=== PATIENT | male | born 1960 | race Caucasian/White ===

== ENCOUNTER 2016-12-05 15:21 | Inpatient (IN) | payer OTHER ==
[2016-12-05 17:30] VITALS: BMI 27.3
--- NOTE | 2016-12-05 20:43 | HP ---
COWS - Scale Resting Pulse: 0= [place] 80 or Below Sweatin= Chills/Flushing Restless Observation: 3= Extraneous Movement Pupil Size: 0= Normal to Room Light Bone or Joint Aches: 2= Severe Diffuse Aches Runny Nose/ Eye Tearin= Runny Nose/Eyes GI Upset > 30mins: 2= Nausea/Diarrhea Tremor Observation: 2= Slight Tremor Visible Yawning Observation: 1= 1-2x During Session Anxiety or Irritability: 2=Irritable/Anxious Goose Flesh Skin: 0=Smooth Skin COWS Score: 15 Admission ROS S - [facility] Chief Complaint: withdrawal sx Allergies/Adverse Reactions: Allergies Allergy/AdvReac Type Severity Reaction Status Date / Time Penicillins Allergy Severe Hives Verified 12/05/16 18:38 History of Present Illness: 56 years old male with long history of opioid nicotine dependence has hypertension, stroke 2002 ambulate with cane, has depression is admitted to detox Exam Limitations: No Limitations - Ebola screening Have you traveled outside of the country in the last 21 days: No Have you had contact with anyone from an Ebola affected area: No Have you been sick,other than usual withdrawal symptoms: No Do you have a fever: No - Review of Systems Constitutional: Chills, Changes in sleep, Weight Stable EENT: reports: Blurred Vision (eye glasses) Respiratory: reports: SOB with Exertion, Productive cough Cardiac: reports: No Symptoms Reported GI: reports: Constipated, Nausea, Poor Fluid Intake, Abdominal cramping : reports: No Symptoms Reported Musculoskeletal: reports: Back Pain, Joint Pain, Muscle Pain, Muscle Weakness ( left arm and left leg), Neck Pain Integumentary: reports: Change in Color (left arm) Neuro: reports: Tremors Endocrine: reports: No Symptoms Reported Hematology: reports: No Symptoms Reported Psychiatric: reports: Judgement Intact, Orientated x3, Depressed Other Systems: Reviewed and Negative Patient History - Patient Medical History Hx Anemia: No Hx Asthma: No Hx Chronic Obstructive Pulmonary Disease (COPD): No Hx Cancer: No Hx Cardiac Disorders: Yes Hx Congestive Heart Failure: No Hx Hypertension: Yes Hx Hypercholesterolemia: No Hx Pacemaker: No HX Cerebrovascular Accident: Yes (2002/left side weakness) Hx Seizures: No Hx Dementia: No Hx Diabetes: No Hx Gastrointestinal Disorders: No Hx Liver Disease: No Hx Genitourinary Disorders: No Hx Sexually Transmitted Disorders: No Hx Renal Disease (ESRD): No Hx Thyroid Disease: No Hx Human Immunodeficiency Virus (HIV): Yes Hx Hepatitis C: Yes Hx Depression: Yes Hx Suicide Attempt: No Hx Bipolar Disorder: No Hx Schizophrenia: No - Patient Surgical History Past Surgical History: Yes Hx Neurologic Surgery: No Hx Cataract Extraction: No Hx Cardiac Surgery: No Hx Lung Surgery: No Hx Breast Surgery: No Hx Breast Biopsy: No Hx Abdominal Surgery: No Hx Appendectomy: No Hx Cholecystectomy: No Hx Genitourinary Surgery: No Hx Orthopedic Surgery: No Other Surgical History: right leg stent 2010 Anesthesia Reaction: No - PPD History Previous Implant?: Yes Documented Results: Negative w/o proof Implanted On Prior [facility] Admission?: No PPD to be Administered?: Yes - Smoking Cessation Smoking history: Current every day smoker Have you smoked in the past 12 months: Yes Aproximately how many cigarettes per day: 10 Cigars Per Day: 0 Hx Chewing Tobacco Use: No Initiated information on smoking cessation: Yes 'Breaking Loose' booklet given: 12/05/16 - Substance & Tx. History Hx Alcohol Use: No Hx Substance Use: Yes Substance Use Type: Heroin Hx Substance Use Treatment: Yes (2012) - Substances Abused Heroin Route: Injection Frequency: Daily Amount used: 5 BAGS Age of first use: 20 Date of Last Use: 12/05/16 Family Disease History - Family Disease History Family Disease History: Diabetes: Sister, Heart Disease: Father (), Mother (), Brother (), Other: Father, Mother, Brother Admission Physical Exam BHS - Vital Signs Vital Signs: Vital Signs - 24 hr 12/05/16 17:28 Temperature 96.7 F L Pulse Rate 79 Respiratory 20 Rate Blood Pressure 126/81 - Physical General Appearance: Yes: Nourished, Appropriately Dressed, Mild Distress, Tremorous, Irritable, Sweating, Anxious HEENTM: Yes: Hearing grossly Normal, Normal ENT Inspection, Normocephalic, Normal Voice Respiratory: Yes: Chest Non-Tender, Lungs Clear, Normal Breath Sounds, No Respiratory Distress, No Accessory Muscle Use Neck: Yes: Supple, Trachea in good position Breast: Yes: Breasts Symetrical Cardiology: Yes: Regular Rhythm, Regular Rate, S1, S2 Abdominal: Yes: Non Tender, Soft, Decreased BS Genitourinary: Yes: Within Normal Limits Back: Yes: Normal Inspection Musculoskeletal: Yes: Gait Steady (cane), Back pain, Joint swelling (left hand) , Muscle Pain, Muscle weakness (left arm and leg) Extremities: Yes: Non-Tender, Tremors Neurological: Yes: Fully Oriented, Alert, Normal Response, Depressed Affect Integumentary: Yes: Warm, Track Obrien Lymphatic: Yes: Within Normal Limits - Diagnostic (1) Opioid dependence with withdrawal Current Visit: Yes Status: Acute (2) HIV (human immunodeficiency virus infection) Current Visit: Yes Status: Chronic (3) Hypertension Current Visit: Yes Status: Chronic Qualifiers: Hypertension type: essential hypertension Qualified Code(s): I10 - Essential (primary) hypertension (4) Depression (emotion) Current Visit: Yes Status: Suspected Qualifiers: Depression Type: dysthymia Qualified Code(s): F34.1 - Dysthymic disorder (5) Use of cane as ambulatory aid Current Visit: Yes Status: Chronic (6) Constipation Current Visit: Yes Status: Chronic Qualifiers: Constipation type: slow transit constipation Qualified Code(s): K59.01 - Slow transit constipation Cleared for Admission [facility] - Detox or Rehab [facility] Level of Care: Medically Managed Detox Regimen/Protocol: Methadone [facility] Breath Alcohol Content Breath Alcohol Content: 0 Urine Drug Screen - Results Drug Screen Negative: No Urine Drug Screen Results: OPI-Opiates, OXY-Oxycodone
[2016-12-05] MEDS ORDERED: NICOTINE POLACRILEX 2 MG GUM BC PRN (20:48)
[2016-12-05] MEDS ORDERED: METHADONE HCL 10 MG TABLET (FOR DETOX USE ONLY) PO ONE ×2 (20:48→23:00)
[2016-12-05] MEDS ORDERED: MAGNESIUM CITRATE 300 ML BOTTLE PO PRN (20:48)
[2016-12-05] MEDS ORDERED: MAG HYDROX/AL HYDROX/SIMETH 30 ML UNIT-DOSE CUP PO PRN (20:48)
[2016-12-05] MEDS ORDERED: P-EPHED 60MG/TRIPROLIDI 2.5MG TABLET PO PRN (20:48)
[2016-12-05] MEDS ORDERED: diphenhydrAMINE HCL 50 MG CAPSULE PO PRN (20:48)
[2016-12-05] MEDS ORDERED: LOPERAMIDE HCL 2 MG CAPSULE PO PRN (20:48)
[2016-12-05] MEDS ORDERED: ACETAMINOPHEN 325 MG TABLET (FP) PO PRN (20:48)
[2016-12-05] MEDS ORDERED: MAGNESIUM HYDROX 2400MG/30ML ORAL SUSPENSION 30 ML CUP PO PRN (20:48)
[2016-12-05] MEDS ORDERED: MENTHOL/PHENOL 1 EACH UD MM PRN (20:48)
[2016-12-05] MEDS ORDERED: guaiFENesin/D-METHORPHAN HB 10 ML UNIT-DOSE CUPS PO PRN (20:48)
[2016-12-05] MEDS: diazePAM 5 MG TABLET PO PRN (21:52)
[2016-12-05] MEDS: PSYLLIUM 5.85 GM PACKET PO SCH (23:14)
[2016-12-05] MEDS: THIAMINE HCL 100 MG TABLET (FP) PO SCH (23:15)
[2016-12-05 23:34] LABS: URINE APPEARANCE SLCLOUDY; URINE BILIRUBIN NEGATIVE (NEGATIVE); URINE BLOOD 1+ (NEGATIVE); URINE COLOR YELLOW; URINE GLUCOSE (UA) NEGATIVE (NEGATIVE); URINE KETONE NEGATIVE (NEGATIVE); URINE LEUK ESTERASE NEGATIVE (NEGATIVE); URINE NITRITE NEGATIVE (NEGATIVE); URINE PROTEIN NEGATIVE (NEGATIVE); URINE UROBILINOGEN NEGATIVE mg/dL (0.2-1.0)
[2016-12-05 23:36] LABS: URINE HYALINE CAST 1 /lpf; URINE MUCUS RARE; URINE RBC 3 /hpf (0-3); URINE WBC 1 /hpf (3-5)
[2016-12-06 09:55] LABS: MCH 32.7 pg (25.7-33.7); MCHC 34.3 g/dl (32.0-35.9); MEAN CELL VOLUME 95.3 fl (80-96); MEAN PLT VOLUME 8.9 fl (7.5-11.1); PLATELET COUNT 256 K/MM3 (134-434); RDW 12.8 % (11.9-15.9); WHITE BLOOD COUNT 9.4 K/mm3 (4.0-10.0)
[2016-12-06 09:58] LABS: ALBUMIN 3.7 g/dl (3.4-5.0); ANION GAP 7 (8-16); CALCIUM 9.5 mg/dL (8.5-10.1); CO2 29 mmol/L (21-32); CREATININE 0.8 mg/dL (0.7-1.3); GLUCOSE,RANDOM 95 mg/dL (74-106); SGOT/AST 17 U/L (15-37); SGPT/ALT 27 U/L (12-78)
[2016-12-06 09:59] LABS: ALK PHOS 89 U/L (45-117); BILIRUBIN,TOTAL 0.5 mg/dL (0.2-1.0); TOT PROT 7.4 g/dl (6.4-8.2)
[2016-12-06] MEDS ORDERED: METHADONE HCL 10 MG TABLET (FOR DETOX USE ONLY) PO ONE (10:00)
--- NOTE | 2016-12-06 10:36 | PN ---
BHS COWS - Scale Resting Pulse: 0= [place] 80 or Below Sweatin= Chills/Flushing Restless Observation: 3= Extraneous Movement Pupil Size: 1= Pupils >than Normal Bone or Joint Aches: 2= Severe Diffuse Aches Runny Nose/ Eye Tearin= Runny Nose/Eyes GI Upset > 30mins: 3= Vomiting/Diarrhea Tremor Observation of Outstretched Hands: 2= Slight Tremor Visible Yawning Observation: 1= 1-2x During Session Anxiety or Irritability: 2=Irritable/Anxious Goose Flesh Skin: 0=Smooth Skin COWS Score: 17 S Progress Note (SOAP) Subjective: alert,irritable,anxious,pain in the body,,interrupted sleep Objective: 12/06/16 10:39 Vital Signs Temperature 97.3 F L 12/06/16 09:53 Pulse Rate 75 12/06/16 09:53 Respiratory Rate 16 12/06/16 09:53 Blood Pressure 129/88 12/06/16 09:53 O2 Sat by Pulse Oximetry (%) 12/06/16 10:40 ekg nsr,normal ecg Laboratory Last Values WBC 9.4 K/mm3 (4.0-10.0) 12/06/16 07:00 RBC 4.87 M/mm3 (4.00-5.60) 12/06/16 07:00 Hgb 15.9 GM/dL (11.7-16.9) 12/06/16 07:00 Hct 46.5 % (35.4-49) 12/06/16 07:00 MCV 95.3 fl (80-96) 12/06/16 07:00 MCH 32.7 pg (25.7-33.7) 12/06/16 07:00 MCHC 34.3 g/dl (32.0-35.9) 12/06/16 07:00 RDW 12.8 % (11.9-15.9) 12/06/16 07:00 Plt Count 256 K/MM3 (134-434) 12/06/16 07:00 MPV 8.9 fl (7.5-11.1) 12/06/16 07:00 Sodium 139 mmol/L (136-145) 12/06/16 07:00 Potassium 3.6 mmol/L (3.5-5.1) 12/06/16 07:00 Chloride 103 mmol/L (98-107) 12/06/16 07:00 Carbon Dioxide 29 mmol/L (21-32) 12/06/16 07:00 Anion Gap 7 (8-16) L 12/06/16 07:00 BUN 17 mg/dL (7-18) 12/06/16 07:00 Creatinine 0.8 mg/dL (0.7-1.3) 12/06/16 07:00 Creat Clearance w eGFR > 60 (>60) 12/06/16 07:00 Random Glucose 95 mg/dL (74-106) 12/06/16 07:00 Calcium 9.5 mg/dL (8.5-10.1) 12/06/16 07:00 Total Bilirubin 0.5 mg/dL (0.2-1.0) 12/06/16 07:00 AST 17 U/L (15-37) 12/06/16 07:00 ALT 27 U/L (12-78) 12/06/16 07:00 Alkaline Phosphatase 89 U/L (45-117) 12/06/16 07:00 Total Protein 7.4 g/dl (6.4-8.2) 12/06/16 07:00 Albumin 3.7 g/dl (3.4-5.0) 12/06/16 07:00 Urine Color Yellow 12/05/16 23:10 Urine Appearance Slcloudy 12/05/16 23:10 Urine pH 5.0 (5.0-8.0) 12/05/16 23:10 Ur Specific [place] 1.025 (1.005-1.025) 12/05/16 23:10 Urine Protein Negative (NEGATIVE) 12/05/16 23:10 Urine Glucose (UA) Negative (NEGATIVE) 12/05/16 23:10 Urine Ketones Negative (NEGATIVE) 12/05/16 23:10 Urine Blood 1+ (NEGATIVE) H 12/05/16 23:10 Urine Nitrite Negative (NEGATIVE) 12/05/16 23:10 Urine Bilirubin Negative (NEGATIVE) 12/05/16 23:10 Urine Urobilinogen Negative mg/dL (0.2-1.0) 12/05/16 23:10 Urine RBC 3 /hpf (0-3) 12/05/16 23:10 Urine WBC 1 /hpf (3-5) 12/05/16 23:10 Hyaline Casts 1 /lpf 12/05/16 23:10 Urine Mucus Rare 12/05/16 23:10 Assessment: 12/06/16 10:40 withdrawal symptom Plan: continue detox
[2016-12-06] MEDS: PATIENT'S OWN MEDICATION (NON-FORMULARY) (Amlodipine Besylate/Benazepril [Lotrel 5-40 Mg C PO SCH (10:37)
[2016-12-06] MEDS: PATIENT'S OWN MEDICATION (NON-FORMULARY) (Darunavir/Cobicistat [Prezcobix 800 Mg-150 Mg Ta PO SCH (10:37)
[2016-12-06] MEDS: PRENATAL VITAMINS W/ FOLIC ACID TABLET (FP) PO SCH (10:40)
[2016-12-06] MEDS: NICOTINE 14 MG/24 HOURS TOPICAL PATCH TD SCH (10:40)
[2016-12-06] MEDS: ASPIRIN 81 MG CHEWABLE TABLETS PO SCH (10:41)
[2016-12-06] MEDS: CHLORTHALIDONE 25 MG TABLET PO SCH (11:30)
[2016-12-06] MEDS ORDERED: PNEUMOC 13-VAL CONJ-DIP CRM/PF 0.5 ML DISP.SYRIN IM ONE (12:00)
[2016-12-06] MEDS ORDERED: FLU VACCINE QUAD 60 MCG/0.5 ML (MDV 17-18) IM ONE (12:00)
--- NOTE | 2016-12-06 16:07 | CONSULT ---
[facility] Psychiatric Consult - Data Date of interview: 12/06/16 Admission source: [facility] Identifying data: This is 56 years old male amb ulating with cane intoxicatyed with: Opioids and Nicotine Substance Abuse History: - Smoking Cessation. Smoking history: Current every day smoker. Have you smoked in the past 12 months: Yes. Aproximately how many cigarettes per day: 10. Cigars Per Day: 0. Hx Chewing Tobacco Use: No. Initiated information on smoking cessation: Yes. 'Breaking Loose' booklet given : 12/05/16. - Substance & Tx. History. Hx Alcohol Use: No. Hx Substance Use: Yes. Substance Use Type: Heroin. Hx Substance Use Treatment: Yes (2012). - Substances Abused. Heroin. Route: Injection. Frequency: Daily. Amount used: 5 BAGS. Age of first use: 20. Date of Last Use: 12/05/16 Medical History: HIV+, HTN, History of Stroke 1992 Psychiatric History: Patienmt reprots history of depression, reports takinf umknown psychiatric medications, did not take them for the last few days and not remembering name of them. Patiebt denies suicidal history, [id number] history of psychiatric admikssions. Physical/Sexual Abuse/Trauma History: Denies Additional Comment: Observation. Detox Unit Care Protocol Mental Status Exam - Mental Status Exam Alert and Oriented to: Person Cognitive Function: Fair Patient Appearance: Unkempt Mood: Sad Affect: Flat Patient Behavior: Guarded Speech Pattern: Delayed Voice Loudness: Mildly Soft/Quiet Thought Process: Circumstantial Thought Disorder: Being Controlled Hallucinations: Denies Suicidal Ideation: Denies Homicidal Ideation: Denies Insight/Judgement: Fair Sleep: Difficulty falling asleep Appetite: Fair Muscle strength/Tone: Normal Gait/Station: Normal Additional Comments: Observation. Detox Unit Care Protocol Psychiatric Findings - Problem List ([place] 1, 2,3) (1) Opioid dependence with withdrawal Current Visit: Yes Status: Acute (2) Nicotine dependence Current Visit: Yes Status: Acute (3) Drug-induced mood disorder Current Visit: Yes Status: Acute - Initial Treatment Plan Initial Treatment Plan: Observation. Detox Unit Care Protocol
[2016-12-06] MEDS: THIAMINE HCL 100 MG TABLET (FP) PO SCH (22:25)
[2016-12-06] MEDS: diazePAM 5 MG TABLET PO PRN (22:25)
[2016-12-06] MEDS: PSYLLIUM 5.85 GM PACKET PO SCH (22:27)
--- NOTE | 2016-12-06 22:36 | EKG ---
Test Reason : Blood Pressure : / mmHG Vent. Rate : 076 BPM Atrial Rate : 076 BPM P-R Int : 192 ms QRS Dur : 110 ms QT Int : 398 ms P-R-T Axes : 053 -26 050 degrees QTc Int : 447 ms SINUS RHYTHM FIRST DEGREE AVBLOCK ATRIAL ABNORMALITY LEFT ANTERIOR FASCICULAR BLOCK INCOMPLETE RBBB NO PREVIOUS ECGS AVAILABLE REPEAT EKG IF CLINICALLY INDICATED Confirmed by BARRON ZAVALETA MD ([id number]) on 12/06/2016 10:35:54 PM Referred By: Confirmed By:BARRON ZAVALETA MD
[2016-12-07] MEDS ORDERED: METHADONE HCL 5 MG TABLET (FOR DETOX USE ONLY) PO ONE (10:00)
[2016-12-07] MEDS: ASPIRIN 81 MG CHEWABLE TABLETS PO SCH (10:35)
[2016-12-07] MEDS: PRENATAL VITAMINS W/ FOLIC ACID TABLET (FP) PO SCH (10:35)
[2016-12-07] MEDS: diazePAM 5 MG TABLET PO PRN (10:35)
[2016-12-07] MEDS: CHLORTHALIDONE 25 MG TABLET PO SCH (10:36)
[2016-12-07] MEDS: PATIENT'S OWN MEDICATION (NON-FORMULARY) (Darunavir/Cobicistat [Prezcobix 800 Mg-150 Mg Ta PO SCH (10:36)
[2016-12-07] MEDS: PATIENT'S OWN MEDICATION (NON-FORMULARY) (Amlodipine Besylate/Benazepril [Lotrel 5-40 Mg C PO SCH (10:36)
[2016-12-07] MEDS: NICOTINE 14 MG/24 HOURS TOPICAL PATCH TD SCH (11:02)
--- NOTE | 2016-12-07 11:41 | PN ---
BHS COWS - Scale Resting Pulse: 1= ID [id number] Sweatin= Chills/Flushing Restless Observation: 3= Extraneous Movement Pupil Size: 1= Pupils >than Normal Bone or Joint Aches: 2= Severe Diffuse Aches Runny Nose/ Eye Tearin= Runny Nose/Eyes GI Upset > 30mins: 2= Nausea/Diarrhea Tremor Observation of Outstretched Hands: 2= Slight Tremor Visible Yawning Observation: 1= 1-2x During Session Anxiety or Irritability: 2=Irritable/Anxious Goose Flesh Skin: 0=Smooth Skin COWS Score: 17 BHS Progress Note (SOAP) Subjective: alert,irritable,anxious,interrupted sleep,pain in the body and back Objective: 12/07/16 11:40 Vital Signs Temperature 97 F L 12/07/16 09:33 Pulse Rate 81 12/07/16 09:33 Respiratory Rate 18 12/07/16 09:33 Blood Pressure 131/64 12/07/16 09:33 O2 Sat by Pulse Oximetry (%) Laboratory Last Values WBC 9.4 K/mm3 (4.0-10.0) 12/06/16 07:00 RBC 4.87 M/mm3 (4.00-5.60) 12/06/16 07:00 Hgb 15.9 GM/dL (11.7-16.9) 12/06/16 07:00 Hct 46.5 % (35.4-49) 12/06/16 07:00 MCV 95.3 fl (80-96) 12/06/16 07:00 MCH 32.7 pg (25.7-33.7) 12/06/16 07:00 MCHC 34.3 g/dl (32.0-35.9) 12/06/16 07:00 RDW 12.8 % (11.9-15.9) 12/06/16 07:00 Plt Count 256 K/MM3 (134-434) 12/06/16 07:00 MPV 8.9 fl (7.5-11.1) 12/06/16 07:00 Sodium 139 mmol/L (136-145) 12/06/16 07:00 Potassium 3.6 mmol/L (3.5-5.1) 12/06/16 07:00 Chloride 103 mmol/L (98-107) 12/06/16 07:00 Carbon Dioxide 29 mmol/L (21-32) 12/06/16 07:00 Anion Gap 7 (8-16) L 12/06/16 07:00 BUN 17 mg/dL (7-18) 12/06/16 07:00 Creatinine 0.8 mg/dL (0.7-1.3) 12/06/16 07:00 Creat Clearance w eGFR > 60 (>60) 12/06/16 07:00 Random Glucose 95 mg/dL (74-106) 12/06/16 07:00 Calcium 9.5 mg/dL (8.5-10.1) 12/06/16 07:00 Total Bilirubin 0.5 mg/dL (0.2-1.0) 12/06/16 07:00 AST 17 U/L (15-37) 12/06/16 07:00 ALT 27 U/L (12-78) 12/06/16 07:00 Alkaline Phosphatase 89 U/L (45-117) 12/06/16 07:00 Total Protein 7.4 g/dl (6.4-8.2) 12/06/16 07:00 Albumin 3.7 g/dl (3.4-5.0) 12/06/16 07:00 Urine Color Yellow 12/05/16 23:10 Urine Appearance Slcloudy 12/05/16 23:10 Urine pH 5.0 (5.0-8.0) 12/05/16 23:10 Ur Specific [place] 1.025 (1.005-1.025) 12/05/16 23:10 Urine Protein Negative (NEGATIVE) 12/05/16 23:10 Urine Glucose (UA) Negative (NEGATIVE) 12/05/16 23:10 Urine Ketones Negative (NEGATIVE) 12/05/16 23:10 Urine Blood 1+ (NEGATIVE) H 12/05/16 23:10 Urine Nitrite Negative (NEGATIVE) 12/05/16 23:10 Urine Bilirubin Negative (NEGATIVE) 12/05/16 23:10 Urine Urobilinogen Negative mg/dL (0.2-1.0) 12/05/16 23:10 Urine RBC 3 /hpf (0-3) 12/05/16 23:10 Urine WBC 1 /hpf (3-5) 12/05/16 23:10 Hyaline Casts 1 /lpf 12/05/16 23:10 Urine Mucus Rare 12/05/16 23:10 RPR Titer Nonreactive (NONREACTIVE) 12/06/16 07:00 Assessment: 12/07/16 11:40 withdrawal symptom Plan: continue detox,ensure plus 120 mls po bid
[2016-12-07] MEDS: THIAMINE HCL 100 MG TABLET (FP) PO SCH (22:29)
[2016-12-07] MEDS: PSYLLIUM 5.85 GM PACKET PO SCH (22:30)
[2016-12-08] MEDS ORDERED: METHADONE HCL 5 MG TABLET (FOR DETOX USE ONLY) PO ONE (10:00)
[2016-12-08] MEDS: PRENATAL VITAMINS W/ FOLIC ACID TABLET (FP) PO SCH (10:28)
[2016-12-08] MEDS: ASPIRIN 81 MG CHEWABLE TABLETS PO SCH (10:28)
[2016-12-08] MEDS: PATIENT'S OWN MEDICATION (NON-FORMULARY) (Amlodipine Besylate/Benazepril [Lotrel 5-40 Mg C PO SCH (10:28)
[2016-12-08] MEDS: PATIENT'S OWN MEDICATION (NON-FORMULARY) (Darunavir/Cobicistat [Prezcobix 800 Mg-150 Mg Ta PO SCH (10:29)
[2016-12-08] MEDS: CHLORTHALIDONE 25 MG TABLET PO SCH (10:29)
[2016-12-08] MEDS: NICOTINE 14 MG/24 HOURS TOPICAL PATCH TD SCH (10:29)
--- NOTE | 2016-12-08 12:44 | PN ---
S Progress Note (SOAP) Subjective: alert,irritable,anxious,interrupted sleep,tremor Objective: 12/08/16 12:43 Vital Signs Temperature 96.8 F L 12/08/16 09:45 Pulse Rate 75 12/08/16 09:45 Respiratory Rate 18 12/08/16 09:45 Blood Pressure 132/77 12/08/16 09:45 O2 Sat by Pulse Oximetry (%) Assessment: 12/08/16 12:43 withdrawal symptom Plan: continue detox
--- NOTE | 2016-12-08 15:46 | PN ---
Psychiatric Progress Note Vital Signs: Vital Signs Period Temp Pulse Resp BP Sys/Booker Pulse Ox Last 24 Hr 96.8 F-97.7 F 68-76 16-18 96-132/68-81 Date of Session: 12/08/16 Chief Complaint:: Insomnia HPI: Patient reports insomnia, reports good response to Ambien in the past for his insomnia Current Medications: Active Medications Generic Name Dose Route Start Last Admin Trade Name Freq PRN Reason Stop Dose Admin Acetaminophen 650 mg 12/05/16 20:48 Tylenol - PO Q4H PRN FEVER OR PAIN Al Hydroxide/Mg Hydroxide 30 ml 12/05/16 20:48 Mylanta Oral Suspension - PO Q6H PRN DYSPEPSIA Aspirin 81 mg 12/06/16 10:00 12/08/16 10:28 Asa - PO 81 mg DAILY REGINO Administration Chlorthalidone 25 mg 12/06/16 10:00 12/08/16 10:29 Hygroton - PO 25 mg DAILY REGINO Administration Diazepam 10 mg 12/05/16 20:48 12/07/16 10:35 Valium - PO 12/08/16 20:47 10 mg Q4H PRN Administration WITHDRAWAL(CONT SUBST) Diphenhydramine HCl 50 mg 12/05/16 20:48 12/07/16 22:30 Benadryl - PO 50 mg HSMR1 PRN Administration INSOMNIA Eucalyptus/Menthol/Phenol/Sorbitol 1 each 12/05/16 20:48 Cepastat Lozenge - MM Q4H PRN SORE THROAT Guaifenesin 10 ml 12/05/16 20:48 Robitussin Dm - PO Q6H PRN COUGH Loperamide HCl 4 mg 12/05/16 20:48 Imodium - PO Q6H PRN DIARRHEA Magnesium Citrate 300 ml 12/05/16 20:48 Citroma - PO Q48H PRN CONSTIPATION Magnesium Hydroxide 30 ml 12/05/16 20:48 Milk Of Magnesia - PO DAILY PRN CONSTIPATION Methadone HCl 10 mg 12/09/16 10:00 Dolophine - PO 12/09/16 10:01 ONCE ONE Methadone HCl 5 mg 12/10/16 06:00 Dolophine - PO 12/10/16 06:01 ONCE@0600 ONE Nicotine 14 mg 12/06/16 10:00 12/08/16 10:29 Nicoderm Patch - TD Not Given DAILY REGINO Nicotine Polacrilex 2 mg 12/05/16 20:48 Nicorette Gum - BC Q2H PRN NICOTINE REPLACEMENT RX Non-Formulary Medication 1 tab 12/06/16 10:00 12/08/16 10:28 Abacavir/Dolutegravir/Lamivudi [Triumeq Tablet] PO 1 tab DAILY REGINO Administration Non-Formulary Medication 1 each 12/06/16 10:00 12/08/16 10:28 Amlodipine Besylate/Benazepril [Lotrel 5-40 Mg Capsule] PO 1 each DAILY REGINO Administration Non-Formulary Medication 1 each 12/06/16 10:00 12/08/16 10:29 Darunavir/Cobicistat [Prezcobix 800 Mg-150 Mg Tablet] PO 1 each DAILY REGINO Administration Multivit/Folic Acid/Iron 1 tab 12/06/16 10:00 12/08/16 10:28 Vitamins ([facility]) - PO 1 tab DAILY REGINO Administration Pseudoephedrine/Triprolidine 1 combo 12/05/16 20:48 Actifed - PO TID PRN NASAL CONGESTION Psyllium Hydrophilic Mucilloid 5.85 gm 12/05/16 22:00 12/07/16 22:30 Metamucil (Sugar-Free) - PO Not Given HS REGINO Thiamine HCl 100 mg 12/05/16 22:00 12/07/16 22:29 Vitamin B1 - PO 100 mg HS REGINO Administration Zolpidem Tartrate 10 mg 12/08/16 15:44 Ambien - PO HS PRN INSOMNIA Medication(s) Change(s): Ambien 10mg po qhs Mental Status Exam - Mental Status Exam Alert and Oriented to: Person Cognitive Function: Fair Patient Appearance: Well Groomed Mood: Anxious Affect: Mood Congruent Patient Behavior: Cooperative Speech Pattern: Appropriate Voice Loudness: Normal Thought Process: Goal Oriented Thought Disorder: Being Controlled Hallucinations: Denies Suicidal Ideation: Denies Homicidal Ideation: Denies Insight/Judgement: Fair Sleep: Difficulty falling asleep Appetite: Fair Muscle strength/Tone: Normal Gait/Station: Normal Additional Comments: Ambien 10mg po qhs Psychiatric Treatment Plan - Problem List (1) Opioid dependence with withdrawal Current Visit: Yes (2) Nicotine dependence Current Visit: Yes (3) Drug-induced mood disorder Current Visit: Yes Initial treatment plan: Ambien 10mg po qhs
[2016-12-08] MEDS: PSYLLIUM 5.85 GM PACKET PO SCH (22:25)
[2016-12-08] MEDS: THIAMINE HCL 100 MG TABLET (FP) PO SCH (22:25)
[2016-12-08] MEDS: ZOLPIDEM TARTRATE 10 MG TABLET (PARK CARE ONLY) PO PRN (22:27)
[2016-12-09] MEDS ORDERED: METHADONE HCL 10 MG TABLET (FOR DETOX USE ONLY) PO ONE (10:00)
--- NOTE | 2016-12-09 10:34 | PN ---
BHS Progress Note (SOAP) Subjective: alert,irritable,interrupted sleep,pain in the body Objective: 12/09/16 10:33 Vital Signs Temperature 96.8 F L 12/09/16 09:50 Pulse Rate 78 12/09/16 09:50 Respiratory Rate 20 12/09/16 09:50 Blood Pressure 119/81 12/09/16 09:50 O2 Sat by Pulse Oximetry (%) Assessment: 12/09/16 10:34 withdrawal symptom Plan: continue detox
[2016-12-09] MEDS: PRENATAL VITAMINS W/ FOLIC ACID TABLET (FP) PO SCH (10:42)
[2016-12-09] MEDS: ASPIRIN 81 MG CHEWABLE TABLETS PO SCH (10:43)
[2016-12-09] MEDS: CHLORTHALIDONE 25 MG TABLET PO SCH (10:43)
[2016-12-09] MEDS: PATIENT'S OWN MEDICATION (NON-FORMULARY) (Amlodipine Besylate/Benazepril [Lotrel 5-40 Mg C PO SCH (10:43)
[2016-12-09] MEDS: PATIENT'S OWN MEDICATION (NON-FORMULARY) (Darunavir/Cobicistat [Prezcobix 800 Mg-150 Mg Ta PO SCH (10:45)
[2016-12-09] MEDS: NICOTINE 14 MG/24 HOURS TOPICAL PATCH TD SCH (10:45)
[2016-12-09] MEDS: PSYLLIUM 5.85 GM PACKET PO SCH (22:36)
[2016-12-09] MEDS: THIAMINE HCL 100 MG TABLET (FP) PO SCH (22:36)
[2016-12-09] MEDS: ZOLPIDEM TARTRATE 10 MG TABLET (PARK CARE ONLY) PO PRN (22:36)
[2016-12-10] MEDS ORDERED: METHADONE HCL 5 MG TABLET (FOR DETOX USE ONLY) PO ONE (06:00)
[2016-12-10] MEDS: ASPIRIN 81 MG CHEWABLE TABLETS PO SCH (10:33)
[2016-12-10] MEDS: CHLORTHALIDONE 25 MG TABLET PO SCH (10:33)
[2016-12-10] MEDS: PRENATAL VITAMINS W/ FOLIC ACID TABLET (FP) PO SCH (10:33)
[2016-12-10] MEDS: PATIENT'S OWN MEDICATION (NON-FORMULARY) (Amlodipine Besylate/Benazepril [Lotrel 5-40 Mg C PO SCH (10:34)
[2016-12-10] MEDS: NICOTINE 14 MG/24 HOURS TOPICAL PATCH TD SCH (10:34)
[2016-12-10] MEDS: PATIENT'S OWN MEDICATION (NON-FORMULARY) (Darunavir/Cobicistat [Prezcobix 800 Mg-150 Mg Ta PO SCH (10:34)
[2016-12-10 11:00] VITALS: BP 128/77; PULSE 78; TEMP 97.7
--- NOTE | 2016-12-10 11:50 | PN ---
S Progress Note (SOAP) Subjective: alert,no complaint Objective: 12/10/16 11:47 Vital Signs Temperature 97.7 F 12/10/16 10:59 Pulse Rate 78 12/10/16 10:59 Respiratory Rate 18 12/10/16 10:59 Blood Pressure 128/77 12/10/16 10:59 O2 Sat by Pulse Oximetry (%) Assessment: 12/10/16 11:47 detox completed,no withdrawal symptom Plan: discharge today,follow up with after care rehab as arrangement
--- NOTE | 2016-12-10 11:56 | DS ---
[facility] Detox Discharge Summary Admission Date: 12/05/16 Discharge Date: 12/10/16 - History Present History: Opioid Dependence Pertinent Past History: hypertension hiv use cane for ambulatory aid - Physical Exam Results Vital Signs: Vital Signs Temperature 97.7 F 12/10/16 10:59 Pulse Rate 78 12/10/16 10:59 Respiratory Rate 18 12/10/16 10:59 Blood Pressure 128/77 12/10/16 10:59 O2 Sat by Pulse Oximetry (%) Pertinent Admission Physical Exam Findings: withdrawal symptom - Treatment Hospital Course: Detox Protocol Followed, Detoxed Safely, Responded well, Discharged Condition Good, Rehab Referral Accepted Patient has Accepted [facility] Referral [facility] - Medication Discharge Medications: Ambulatory Orders Abacavir/Dolutegravir/Lamivudi [Triumeq Tablet] 1 tab PO DAILY 12/05/16 Amlodipine Besylate/Benazepril [Lotrel 5-40 mg Capsule] 1 each PO DAILY Aspirin [ASA -] 81 mg PO DAILY 12/05/16 Chlorthalidone [Hygroton -] 25 mg PO DAILY 12/05/16 Darunavir/Cobicistat [Prezcobix 800 mg-150 mg Tablet] 1 each PO DAILY 12/05/16 - Diagnosis (1) Opioid dependence with withdrawal Current Visit: Yes Status: Acute (2) Drug-induced mood disorder Current Visit: Yes Status: Acute (3) Nicotine dependence Current Visit: Yes Status: Acute (4) HIV (human immunodeficiency virus infection) Current Visit: Yes Status: Chronic (5) Hypertension Current Visit: Yes Status: Chronic Qualifiers: Hypertension type: essential hypertension Qualified Code(s): I10 - Essential (primary) hypertension (6) Use of cane as ambulatory aid Current Visit: Yes Status: Chronic - AMA Did Patient Leave Against Medical Advice: No
== END 2016-12-10 13:40 | disposition other institution (70) | DRG 897 ==
LOC: YASAS 15:21 → Y6N 19:58
PROVIDERS: ADMIT Internal Medicine; ATTEND Internal Medicine
PROC: HZ2ZZZZ Detoxification Services for Substance Abuse Treatment (ICD-10-PCS; principal; 2016-12-05)
DX: F11.23 Opioid dependence with withdrawal (principal); I69.851 Hemiplegia and hemiparesis following other cerebrovascular disease affecting right dominant side; F17.210 Nicotine dependence, cigarettes, uncomplicated; F19.24 Other psychoactive substance dependence with psychoactive substance-induced mood disorder; F34.1 Dysthymic disorder; B18.2 Chronic viral hepatitis C; Z21 Asymptomatic human immunodeficiency virus [HIV] infection status; K59.01 Slow transit constipation; R26.89 Other abnormalities of gait and mobility; Z99.89 Dependence on other enabling machines and devices
CPT/HCPCS: 36415; 80053; 81003; 81015; 85027; 86593; 90670; 90688; 93005; 93010; G0008; G0009